=== PATIENT | female | born 1985 | race Caucasian/White ===

== ENCOUNTER 2023-08-11 18:08 | Emergency (ER) | payer MEDICAID ==
[2023-08-11] MEDS ORDERED: Sodium Chloride 0.9% 10 ML Syringe FLUSH PRN (19:06)
[2023-08-11 19:34] LABS: BASOPHILS PERCENT AUTO 0.4 % (0.0-1.0); EOSINOPHILS ABSOLUTE AUTO 0.1 K/mm3 (0.0-0.4); EOSINOPHILS PERCENT AUTO 1.2 % (0.0-6.0); HEMATOCRIT 43.2 % (37.0-47.0); HEMOGLOBIN 14.5 gm/dl (12.0-16.0); IMMATURE GRAN ABSOLUTE AUTO 0.02 K/mm3 (0.00-0.05); IMMATURE GRAN PERCENT AUTO 0.3 % (0.0-0.4); LYMPHOCYTES ABSOLUTE AUTO 2.9 K/mm3 (1.0-4.8); LYMPHOCYTES PERCENT AUTO 37.6 % (24.0-44.0); MEAN CORPUSCULAR HGB CONC 33.6 g/dl (32.0-36.0); MEAN CORPUSCULAR VOLUME 92.5 fl (83.0-99.0); MEAN PLATELET VOLUME 9.4 fl (9.4-12.3); MONOCYTES ABSOLUTE AUTO 0.6 K/mm3 (0.0-0.8); MONOCYTES PERCENT AUTO 7.3 % (0.0-8.0); NEUTROPHILS ABSOLUTE AUTO 4.1 K/mm3 (1.8-7.7); NEUTROPHILS PERCENT AUTO 53.2 % (41.0-71.0); PLATELET COUNT,PLT 276 K/mm3 (150-400); RED BLOOD CELL COUNT 4.67 M/mm3 (4.10-5.30); WHITE BLOOD CELL COUNT,WBC 7.64 K/mm3 (3.9-11.3)
[2023-08-11 19:56] LABS: A/G RATIO 0.8 (1-2); ALANINE AMINOTRANSFERASE,ALT 248 U/L (14-59); ALBUMIN 3.6 g/dl (3.4-5.0); ALKALINE PHOSPHATASE 61 U/L (46-116); ANION GAP 16.1 (5-15); ASPARTATE AMNIOTRANSFERASE,AST 121 U/L (15-37); BILIRUBIN TOTAL 0.4 mg/dL (0.2-1.0); BLOOD UREA NITROGEN,BUN 14 mg/dL (7-18); BUN/CREATININE RATIO 17.5 (14-18); C-REACTIVE PROTEIN <0.2 mg/dL (<1.0); CARBON DIOXIDE,CO2 26 mEq/L (21-32); CHLORIDE,CL 98 mEq/L (98-107); CREATININE 0.8 mg/dL (0.55-1.02); EST CRCL DRUG DOSING (CG) 75.41 mL/min; ESTIMATED GFR 97 mL/min (>60); GLUCOSE RANDOM 90 mg/dL (70-99); POTASSIUM,K 4.1 mEq/L (3.5-5.1); PROTEIN TOTAL,TP 7.9 g/dl (6.4-8.2); SODIUM,NA 136 mEq/L (136-145)
[2023-08-11] MEDS: Iopamidol 612 MG/ML 100 ML Bottle IVPUSH ONE (20:46)
[2023-08-11] MEDS: Sodium Chloride 0.9% 10 ML Syringe FLUSH ONE (20:46)
[2023-08-11 21:38] LABS: APPEARANCE,URINE CLEAR (Clear); BILIRUBIN,URINE NEGATIVE (Negative); COLOR,URINE YELLOW (Yellow); GLUCOSE,URINE NEGATIVE (Negative); KETONES,URINE TRACE (Negative); LEUKOCYTE ESTERASE,URINE NEGATIVE (Negative); NITRITE,URINE NEGATIVE (Negative); OCCULT BLOOD,URINE NEGATIVE (Negative); PROTEIN,URINE NEGATIVE (Negative); UROBILINOGEN,URINE 0.2 (0.2-1.0)
[2023-08-11 21:56] LABS: BARBITURATE SCREEN,URINE NEGATIVE (CUTOFF=200); BENZODIAZEPINES SCREEN,URINE NEGATIVE (CUTOFF=150); BUPRENORPHINE SCREEN,URINE NEGATIVE (CUTOFF=10); METHADONE SCREEN, URINE NEGATIVE (CUTOFF=200); METHAMPHETAMINES SCREEN, URINE PRESUMPTIVE POSITIVE (CUTOFF=500); OXYCODONE SCREEN,URINE NEGATIVE (CUT0FF=100); THC SCREEN,URINE 20 NG/ML NEGATIVE (CUTOFF=50)
[2023-08-11 21:58] LABS: AMPHETAMINES SCREEN, URINE PRESUMPTIVE POSITIVE (CUTOFF=500)
[2023-08-11 22:55] VITALS: BP 148/87; PULSE 90
== END 2023-08-11 22:50 | disposition home or self-care (01) ==
LOC: JD.ED 18:08
DX: R74.01 Elevation of levels of liver transaminase levels (principal); F15.10 Other stimulant abuse, uncomplicated; D35.02 Benign neoplasm of left adrenal gland; I10 Essential (primary) hypertension; F17.210 Nicotine dependence, cigarettes, uncomplicated
CPT/HCPCS: 36415; 74177; 74177-26; 80053; 80306; 80307; 81003; 84703; 85025; 86140; 99284; J3490; Q9967

== ENCOUNTER 2024-01-22 19:25 | Emergency (ER) | payer MEDICAID ==
[2024-01-22] MEDS ORDERED: Racepinephrine 2.25% 0.5 ML Neb Soln ONE (19:27)
[2024-01-22] MEDS ORDERED: diphenhydrAMINE 50 MG/ML SDV ONE (19:28)
[2024-01-22] MEDS: diphenhydrAMINE 50 MG/ML SDV IVPUSH ONE (19:30)
[2024-01-22] MEDS ORDERED: Sodium Chloride 0.9% Inhalation Soln 3 ML Neb INH PRN (19:33)
[2024-01-22] MEDS ORDERED: Racepinephrine 2.25% 0.5 ML Neb Soln NEB ONE (19:33)
[2024-01-22] MEDS: methylPREDNISolone Sodium Succinate 125 MG/2 ML SDV IVPUSH ONE (19:46)
[2024-01-22 19:49] LABS: BASOPHILS PERCENT AUTO 0.1 % (0.0-1.0); EOSINOPHILS PERCENT AUTO 0.3 % (0.0-6.0); HEMATOCRIT 48.6 % (37.0-47.0); HEMOGLOBIN 16.2 gm/dl (12.0-16.0); IMMATURE GRAN ABSOLUTE AUTO 0.02 K/mm3 (0.00-0.05); IMMATURE GRAN PERCENT AUTO 0.2 % (0.0-0.4); LYMPHOCYTES PERCENT AUTO 59.7 % (24.0-44.0); MEAN CORPUSCULAR HEMOGLOBIN 33.1 pg (28.0-32.0); MEAN CORPUSCULAR HGB CONC 33.3 g/dl (32.0-36.0); MEAN CORPUSCULAR VOLUME 99.4 fl (83.0-99.0); MONOCYTES ABSOLUTE AUTO 0.3 K/mm3 (0.0-0.8); MONOCYTES PERCENT AUTO 2.9 % (0.0-8.0); NEUTROPHILS ABSOLUTE AUTO 3.7 K/mm3 (1.8-7.7); NEUTROPHILS PERCENT AUTO 36.8 % (41.0-71.0); PLATELET COUNT,PLT 334 K/mm3 (150-400); RED BLOOD CELL COUNT 4.89 M/mm3 (4.10-5.30); WHITE BLOOD CELL COUNT,WBC 9.97 K/mm3 (3.9-11.3)
[2024-01-22] MEDS: Sodium Chloride 0.9% 1,000 ML IV ONE ×2 (19:56→20:44)
[2024-01-22] MEDS: Sodium Chloride 0.9% 10 ML Syringe FLUSH PRN (19:57)
[2024-01-22 20:40] LABS: A/G RATIO 0.8 (1-2); ALBUMIN 2.9 g/dl (3.4-5.0); BILIRUBIN TOTAL 0.4 mg/dL (0.2-1.0); BUN/CREATININE RATIO 11.7 (14-18); CALCIUM 8.4 mg/dL (8.5-10.1); CREATININE 1.2 mg/dL (0.55-1.02); EST CRCL DRUG DOSING (CG) 58.92 mL/min; ETHANOL BLOOD MEDICAL 0.01 gm% (0.00); PROTEIN TOTAL,TP 6.4 g/dl (6.4-8.2)
[2024-01-22 20:46] LABS: SLIDE REVIEW ABNORMAL SMEAR
[2024-01-22 21:48] LABS: APPEARANCE,URINE CLEAR (Clear); BILIRUBIN,URINE NEGATIVE (Negative); COLOR,URINE YELLOW (Yellow); GLUCOSE,URINE NEGATIVE (Negative); KETONES,URINE NEGATIVE (Negative); LEUKOCYTE ESTERASE,URINE NEGATIVE (Negative); NITRITE,URINE NEGATIVE (Negative); OCCULT BLOOD,URINE NEGATIVE (Negative); PROTEIN,URINE 1+ (Negative)
[2024-01-22 21:53] LABS: BARBITURATE SCREEN,URINE NEGATIVE (CUTOFF=200); BENZODIAZEPINES SCREEN,URINE NEGATIVE (CUTOFF=150); BUPRENORPHINE SCREEN,URINE NEGATIVE (CUTOFF=10); METHADONE SCREEN, URINE NEGATIVE (CUTOFF=200); METHAMPHETAMINES SCREEN, URINE PRESUMPTIVE POSITIVE (CUTOFF=500); OXYCODONE SCREEN,URINE NEGATIVE (CUT0FF=100); THC SCREEN,URINE 20 NG/ML NEGATIVE (CUTOFF=50)
[2024-01-22 22:16] LABS: BACTERIA,URINE FEW /hpf (FEW); MUCUS,URINE FEW /hpf (FEW); RBC,URINE 0-5 /hpf (0-5); SQUAMOUS EPITHELIAL CELLS,UR 0-5 /hpf (0-5); WBC,URINE 0-5 /hpf (0-5)
[2024-01-22 22:28] LABS: AMPHETAMINES SCREEN, URINE PRESUMPTIVE POSITIVE (CUTOFF=500)
[2024-01-22 23:34] VITALS: BP 99/82; PULSE 91
== END 2024-01-22 23:33 | disposition home or self-care (01) ==
LOC: JD.ED 19:25
DX: T63.441A Toxic effect of venom of bees, accidental (unintentional), initial encounter (principal); F15.10 Other stimulant abuse, uncomplicated; I10 Essential (primary) hypertension
CPT/HCPCS: 36415; 80053; 80306; 80307; 81001; 84484; 85025; 93005; 94640; 96361; 96374; 96375; 99285; J1200; J2919; J3490; J7030; 93010; 99284